=== PATIENT | male | born 1985 | race African-American/Black ===

== ENCOUNTER 2018-01-19 16:39 | Emergency (ER) | payer SELFPAY ==
[2018-01-19 16:51] VITALS: BP 120/89; PULSE 80; TEMP 98.7; BMI 24.1
--- NOTE | 2018-01-19 16:57 | PDOC ---
Attending Attestation - Resident Resident Name: Urbano Nicholson - ED Attending Attestation I have performed the following: I have examined & evaluated the patient, The case was reviewed & discussed with the resident, I agree w/resident's findings & plan, Exceptions are as noted - HPI HPI: 01/19/18 16:57 The patient is a 32 year old male with no significant PMH who presents to the emergency department with a right hand injury for 2 days. The patient reports that he was at work yesterday when he punched a metal door. The patient reports that he was angry at work. The patient reports some associated swelling and nonradiating pain in his right hand. He states that his hand pain worsened this morning at around 12am. He denies any numbness, weakness, or tingling sensation. He denies any other symptoms. The patient denies any other complaints. pt has not taking any pain meds currently and does not want to at this time, he is using a ice pack with minimal relief - Physicial Exam PE: 01/19/18 17:07 GENERAL: The patient is awake, alert, and fully oriented, Nontoxic - in no acute distress. EXTREMITIES: R hand exam: diffuse edema of the R hand, tenderness topalpation of the 4th metacarpal, mild diffuse tenderness of the R wrist, no tenderness at snuffbox, sensation intact, wrist flexion/extension, finger strength intact/ symmetric. no erythema, unable to appreciate defomities due to swelling - Medical Decision Making 01/19/18 17:13 ddx fx vs contusion will obtain xray to r/o boxers fx, wrist injury pt declines pain meds 01/19/18 18:46 xray cx with proxmial metacarpal fx pt splnited in ulnar gutter by Dr. Nicholson with my assistance will have pt fu with orthopedics return precautions were discussed pt again declines pain meds Procedures - Consent Consent obtained: Verbal - Splinting Splint Location: Right: Forearm Pre-Proc Neuro Vasc Exam: normal Hand-Made Type: orthoglass Splint Type: Yes: Ulnar Post-Proc Neuro Vasc Exam: normal Baldo Bandage: 4" Sling: Yes Complications: No Post splint xray: No Good repositioning: Yes
--- NOTE | 2018-01-19 17:17 | PDOC ---
History of Present Illness - General Chief Complaint: Injury Stated Complaint: RT HAND INJURY Time Seen by Provider: 01/19/18 16:45 History Source: Patient Exam Limitations: No Limitations - History of Present Illness Initial Comments: 01/19/18 17:12 32 yo male, no significant PMH presents to ED for a one day history of right hand pain and swelling. Patient states he was upset at work and punched a metal door. Swelling is located over the dorsum of his hand and most of the pain is located on the 4th knuckle and wrist associated with movement. Patient used ice last night which helped a little with his pain. Denies numbness or tingling, weakness, snuff box tenderness or coldness in the hand. Timing/Duration: 24 hours Past History - Past Medical History Allergies/Adverse Reactions: Allergies Allergy/AdvReac Type Severity Reaction Status Date / Time No Known Drug Allergies Allergy Verified 01/19/18 17:10 raspberry Allergy Verified 01/19/18 17:10 Home Medications: Ambulatory Orders NK [No Known Home Medication] 01/19/18 COPD: No Thyroid Disease: No - Immunization History Immunization Up to Date: No - Suicide/Smoking/Psychosocial Hx Smoking History: Never smoked Have you smoked in the past 12 months: No Information on smoking cessation initiated: No Hx Alcohol Use: (occasional) Substance Use Type: None Review of Systems - Review of Systems Musculoskeletal: No: Muscle Weakness Neurological: No: Numbness, Paresthesia, Tingling, Weakness *Physical Exam - Vital Signs Last Vital Signs Temp Pulse Resp BP Pulse Ox 98.7 F 80 16 120/89 100 01/19/18 16:39 01/19/18 16:39 01/19/18 16:39 01/19/18 16:39 01/19/18 16:39 - Physical Exam General Appearance: Yes: Nourished, Appropriately Dressed. No: Apparent Distress Comments:: 01/19/18 18:5 Radial pulse equal bilaterally Extremity: positive: Normal Capillary Refill, Other (swelling over right dorsum of hand. Negative snuff box tenderness. Tender to palpation over 4th and 5th MCP -PIP joint) ED Treatment Course - RADIOLOGY Radiology Studies Ordered: Category Date Time Status HAND- RIGHT [RAD] Stat Radiology 01/19/18 17:01 Ordered WRIST- RIGHT [RAD] Stat Radiology 01/19/18 17:03 Ordered Medical Decision Making - Medical Decision Making 01/19/18 18:43 32 yo male punches metal door causing right hand pain and swelling. Neurovascularly intact, no weakness on exam Negative snuff box tenderness. Pain over 4th and 5th MCP-PIP joint. X rays demonstrate boxers fracture of 5th digit. Ulnar splint with ortho glass and sling done in ED. Refer to Dr. Rahman for further outpatient evaluation and treatment. *DC/Admit/Observation/Transfer Diagnosis at time of Disposition: Boxers fracture Qualifiers: Encounter type: initial encounter Fracture type: closed Qualified Code(s): S62.339A - Displaced fracture of neck of unspecified metacarpal bone, initial encounter for closed fracture - Discharge Dispostion Disposition: HOME Condition at time of disposition: Stable Decision to Admit order: No - Referrals Referrals: Quoc Rahman MD [Staff Physician] - - Patient Instructions Printed Discharge Instructions: How to Use a Sling, DI for Boxer's Fracture Additional Instructions: Please return to ED with new or worsening symptoms including but not limited to : loss of sensation, coldness or numbness/tingling into the hand. Follow up with Dr. Rahman for further evaluation and treatment. Follow up with PCP within 4 days - Post Discharge Activity
== END 2018-01-19 18:55 | disposition home or self-care (01) ==
LOC: FER 16:39
PROC: 2W3CX1Z Immobilization of Right Lower Arm using Splint (ICD-10-PCS; principal; 2018-01-19)
DX: S62.314A Displaced fracture of base of fourth metacarpal bone, right hand, initial encounter for closed fracture (principal); S62.316A Displaced fracture of base of fifth metacarpal bone, right hand, initial encounter for closed fracture; W22.8XXA Striking against or struck by other objects, initial encounter; Y93.89 Activity, other specified; Y92.9 Unspecified place or not applicable; Y99.0 Civilian activity done for income or pay
CPT/HCPCS: 73110-TC-RT-FY; 73130-TC-RT-FY; 99283-25